=== PATIENT | female | born 1945 | race Caucasian/White ===

== ENCOUNTER 2018-08-26 07:18 | Emergency (ER) | payer OTHER ==
[~2018-08-26 07:18] MED LIST: ESOM40CA PO; INSULIN LISPRO; LITH300T4 PO; NPH,100V SQ; VENL225T3 PO; [UNRECOGNIZED DRUG - OTHER]
[2018-08-26 08:39] LABS: BASOPHILS % (AUTO) 0.5 % (0.0-5.0); EOSINOPHILS % (AUTO) 1.1 % (0.0-8.0); HEMATOCRIT 40.4 % (36-48); LYMPHOCYTES % (AUTO) 8.3 % (21.0-51.0); MEAN CORPUSCULAR HEMOGLOBIN 31.7 pg (27.0-33.0); MEAN CORPUSCULAR HGB CONC 33.7 g/dL (32.0-36.0); MEAN CORPUSCULAR VOLUME 94.1 fL (79-99); MONOCYTES % (AUTO) 7.8 % (3.0-13.0); NEUTROPHILS % (AUTO) 82.3 % (40.0-77.0); PLATELET COUNT (AUTO) 259 K/uL (130-400); RED BLOOD CELL COUNT(AUTO) 4.29 MIL/uL (4.00-5.50); RED CELL DISTRIBUTION WIDTH 13.4 % (11.0-15.5); WHITE BLOOD COUNT (AUTO) 9.6 K/uL (4.8-10.8)
[2018-08-26 08:45] LABS: CREATININE 0.7 mg/dL (0.5-1.5); POTASSIUM 3.7 mmol/L (3.5-5.1)
[2018-08-26 08:49] LABS: BILIRUBIN,TOTAL 0.5 mg/dL (0.2-1.0); TOTAL PROTEIN, SERUM 6.7 g/dL (6.0-8.3)
[2018-08-26 08:55] LABS: INR 0.9 (0.85-1.15); PARTIAL THROMBOPLASTIN TIME 25.1 SEC (26.3-35.5); PROTHROMBIN TIME 9.5 SEC (9.6-11.6)
[2018-08-26] MEDS ORDERED: CEFTRIAXONE SODIUM 1 GM ONE (09:02)
[2018-08-26] MEDS ORDERED: SODIUM CHLORIDE 0.9% 50 ML IV ONE (09:02)
[2018-08-26 09:25] LABS: APPEARANCE,URINE Clear (CLEAR); BILIRUBIN,URINE Small (NEGATIVE); COLOR,URINE Dark Yellow (YELLOW); GLUCOSE, URINE (UA) >=1000 mg/dL (NEGATIVE); KETONES,URINE 15 mg/dL (NEGATIVE); LEUKOCYTE ESTERASE ,URINE Small (NEGATIVE); NITRATE,URINE Negative (NEGATIVE); OCCULT BLOOD,URINE Nonhemolyzed Trace (NEGATIVE); PH,URINE 5.5 (5.0-8.0); PROTEIN,URINE Negative (NEGATIVE)
[2018-08-26 09:35] LABS: BACTERIA,URINE Rare /HPF (None Seen); MUCUS,URINE Few LPF (None Seen); RBC,URINE 0-1 /HPF (0-1); SQUAMOUS EPITHELIAL CELL,UR Rare /HPF (0-2)
== END 2018-08-26 09:44 | disposition home or self-care (01) ==
LOC: EDH 07:18
DX: K04.7 Periapical abscess without sinus (principal); I48.91 Unspecified atrial fibrillation; E11.9 Type 2 diabetes mellitus without complications; F32.9 Major depressive disorder, single episode, unspecified; K21.9 Gastro-esophageal reflux disease without esophagitis; Z79.4 Long term (current) use of insulin; Z91.040 Latex allergy status; Z88.8 Allergy status to other drugs, medicaments and biological substances
CPT/HCPCS: 36415; 71045; 80053; 81001; 84484; 85025; 85610; 85730; 93005; 96374; 99284; J0696

== ENCOUNTER 2019-06-28 07:46 | Emergency (ER) | payer OTHER ==
[2019-06-28] MEDS ORDERED: PROCHLORPERAZINE EDISYLATE 10 MG/2 ML VIAL ONE (08:31)
[2019-06-28] MEDS ORDERED: SODIUM CHLORIDE 0.9% 1000ML 1,000 ML IV ONE (08:31)
[2019-06-28 08:45] LABS: BASOPHILS % (AUTO) 0.7 % (0.0-5.0); EOSINOPHILS % (AUTO) 1.4 % (0.0-8.0); HEMATOCRIT 40.8 % (36-48); LYMPHOCYTES % (AUTO) 9.6 % (21.0-51.0); MEAN CORPUSCULAR HEMOGLOBIN 32.8 pg (27.0-33.0); MEAN CORPUSCULAR HGB CONC 33.9 g/dL (32.0-36.0); MEAN CORPUSCULAR VOLUME 96.8 fL (79-99); MONOCYTES % (AUTO) 7.6 % (3.0-13.0); NEUTROPHILS % (AUTO) 80.7 % (40.0-77.0); NUCLEATED RED BLOOD CELLS 0.1 % (0.0-0.19); PLATELET COUNT (AUTO) 280 K/uL (130-400); RED BLOOD CELL COUNT(AUTO) 4.21 MIL/uL (4.00-5.50); RED CELL DISTRIBUTION WIDTH 13.1 % (11.0-15.5); WHITE BLOOD COUNT (AUTO) 8.3 K/uL (4.8-10.8)
[2019-06-28 09:14] LABS: B-TYPE NATRIURETIC PEPTIDE 16 pg/mL (0-100)
[2019-06-28 09:16] LABS: INR 0.95 (0.85-1.15)
[2019-06-28 09:23] LABS: CREATININE 0.9 mg/dL (0.5-1.5)
[2019-06-28 09:24] LABS: BILIRUBIN,TOTAL 0.3 mg/dL (0.2-1.0); TOTAL PROTEIN, SERUM 6.5 g/dL (6.0-8.3)
[2019-06-28] MEDS ORDERED: HALOPERIDOL LACTATE 5 MG/ML VIAL ONE (09:35)
[2019-06-28 09:43] LABS: POTASSIUM 4.1 mmol/L (3.5-5.1)
[2019-06-28 09:51] LABS: APPEARANCE,URINE Clear (CLEAR); BILIRUBIN,URINE Negative (NEGATIVE); COLOR,URINE Yellow (YELLOW); GLUCOSE, URINE (UA) >=1000 mg/dL (NEGATIVE); KETONES,URINE Trace mg/dL (NEGATIVE); LEUKOCYTE ESTERASE ,URINE Negative (NEGATIVE); NITRATE,URINE Negative (NEGATIVE); OCCULT BLOOD,URINE Nonhemolyzed Trace (NEGATIVE); PROTEIN,URINE Negative (NEGATIVE); UROBILINOGEN,URINE 0.2 mg/dL (0.2-1.0)
[2019-06-28 09:58] LABS: BACTERIA,URINE Rare /HPF (None Seen); RBC,URINE 0-1 /HPF (0-1); SQUAMOUS EPITHELIAL CELL,UR Rare /HPF (0-2); WBC,URINE 0-1 /HPF (0-1)
[2019-06-28] MEDS ORDERED: INSULIN HUMULIN R 100 UNIT/ML 3ML ONE (10:22)
[2019-06-28] MEDS ORDERED: IOHEXOL-350 75 ML VIAL IV ONE (11:12)
== END 2019-06-28 13:48 | disposition home or self-care (01) ==
LOC: EDH 07:46
DX: R07.89 Other chest pain (principal); I48.91 Unspecified atrial fibrillation; F31.9 Bipolar disorder, unspecified; E11.9 Type 2 diabetes mellitus without complications; K21.9 Gastro-esophageal reflux disease without esophagitis; Z79.4 Long term (current) use of insulin; Z72.0 Tobacco use; Z88.8 Allergy status to other drugs, medicaments and biological substances; Z91.040 Latex allergy status
CPT/HCPCS: 36415; 71045; 71275; 80053; 81001; 82550; 82948 ×2; 83880; 84484 ×2; 85025; 85610; 85730; 93005 ×2; 96374; 96375; 99285; J0780; J1630; J1815; J7030; Q9967

== ENCOUNTER 2019-07-07 03:43 | Emergency (ER) | payer OTHER ==
[2019-07-07] MEDS ORDERED: DIAZEPAM 5 MG TABLET ONE (04:17)
[2019-07-07] MEDS ORDERED: ORPHENADRINE CITRATE 30 MG/ML ML ONE (04:17)
[2019-07-07 04:21] LABS: BASOPHILS % (AUTO) 0.4 % (0.0-5.0); EOSINOPHILS % (AUTO) 0.9 % (0.0-8.0); HEMATOCRIT 41.9 % (36-48); LYMPHOCYTES % (AUTO) 6.6 % (21.0-51.0); MEAN CORPUSCULAR HEMOGLOBIN 32.5 pg (27.0-33.0); MEAN CORPUSCULAR HGB CONC 33.8 g/dL (32.0-36.0); MEAN CORPUSCULAR VOLUME 96.2 fL (79-99); MONOCYTES % (AUTO) 7.6 % (3.0-13.0); NEUTROPHILS % (AUTO) 84.5 % (40.0-77.0); PLATELET COUNT (AUTO) 262 K/uL (130-400); RED BLOOD CELL COUNT(AUTO) 4.35 MIL/uL (4.00-5.50); RED CELL DISTRIBUTION WIDTH 13.2 % (11.0-15.5); WHITE BLOOD COUNT (AUTO) 9.5 K/uL (4.8-10.8)
[2019-07-07 04:46] LABS: ALBUMIN 3.3 g/dL (3.5-5.0); BILIRUBIN,TOTAL 0.5 mg/dL (0.2-1.0); CREATININE 0.7 mg/dL (0.5-1.5); POTASSIUM 4.3 mmol/L (3.5-5.1); TOTAL PROTEIN, SERUM 6.5 g/dL (6.0-8.3)
[2019-07-07] MEDS ORDERED: INSULIN HUMULIN R 100 UNIT/ML 3ML ONE (05:01)
[2019-07-07] MEDS ORDERED: HYDROCODONE/ACETAMINOPHEN 10/325 MG TAB ONE (06:05)
== END 2019-07-07 06:47 | disposition home or self-care (01) ==
LOC: EDH 03:43
DX: M25.511 Pain in right shoulder (principal); M54.2 Cervicalgia; I48.91 Unspecified atrial fibrillation; E11.9 Type 2 diabetes mellitus without complications; K21.9 Gastro-esophageal reflux disease without esophagitis; I10 Essential (primary) hypertension; F41.9 Anxiety disorder, unspecified; E78.00 Pure hypercholesterolemia, unspecified; F31.9 Bipolar disorder, unspecified; F10.20 Alcohol dependence, uncomplicated; Z91.040 Latex allergy status; Z88.8 Allergy status to other drugs, medicaments and biological substances
CPT/HCPCS: 36415; 71045; 80053; 82550; 82948; 84484; 85025; 93005; 96374; 96375; 99285; J1815; J2360

== ENCOUNTER 2019-07-10 04:40 | Emergency (ER) | payer OTHER ==
[2019-07-10 05:54] LABS: APPEARANCE,URINE Clear (CLEAR); BILIRUBIN,URINE Negative (NEGATIVE); COLOR,URINE Yellow (YELLOW); GLUCOSE, URINE (UA) >=1000 mg/dL (NEGATIVE); KETONES,URINE 15 mg/dL (NEGATIVE); LEUKOCYTE ESTERASE ,URINE Trace (NEGATIVE); NITRATE,URINE Negative (NEGATIVE); OCCULT BLOOD,URINE Negative (NEGATIVE); PH,URINE 6.5 (5.0-8.0); PROTEIN,URINE Negative (NEGATIVE)
[2019-07-10 06:08] LABS: BACTERIA,URINE None Seen /HPF (None Seen); RBC,URINE None Seen /HPF (0-1); SQUAMOUS EPITHELIAL CELL,UR Rare /HPF (0-2); WBC,URINE 0-1 /HPF (0-1); YEAST,URINE BUDDING None Seen /HPF (None Seen)
[2019-07-10 06:21] LABS: BASOPHILS % (AUTO) 0.5 % (0.0-5.0); EOSINOPHILS % (AUTO) 1.6 % (0.0-8.0); HEMATOCRIT 39.8 % (36-48); LYMPHOCYTES % (AUTO) 15.7 % (21.0-51.0); MEAN CORPUSCULAR HEMOGLOBIN 32.5 pg (27.0-33.0); MEAN CORPUSCULAR VOLUME 95.6 fL (79-99); MONOCYTES % (AUTO) 9.8 % (3.0-13.0); NEUTROPHILS % (AUTO) 72.4 % (40.0-77.0); PLATELET COUNT (AUTO) 270 K/uL (130-400); RED BLOOD CELL COUNT(AUTO) 4.16 MIL/uL (4.00-5.50); WHITE BLOOD COUNT (AUTO) 6.7 K/uL (4.8-10.8)
[2019-07-10 06:32] LABS: CARBON DIOXIDE 27 mmol/L (21-32); CHLORIDE 102 mmol/L (101-111); CREATININE 0.7 mg/dL (0.5-1.5); GLOMERULAR FILTR. RATE CALC 87 mL/min (>60); GLUCOSE,RANDOM 384 mg/dL (70-105); POTASSIUM 3.4 mmol/L (3.5-5.1); SODIUM SERUM 138 mmol/L (136-145); UREA NITROGEN, BLOOD 6 mg/dL (7-18)
[2019-07-10 06:42] LABS: ALANINE AMINOTRANSFERASE 17 U/L (12-78); ALBUMIN 3.2 g/dL (3.5-5.0); ASPARTATE AMINOTRANSFERASE 12 U/L (10-37); BILIRUBIN,TOTAL 0.5 mg/dL (0.2-1.0); TOTAL PROTEIN, SERUM 6.8 g/dL (6.0-8.3)
[2019-07-10 06:52] LABS: LIPASE < 50 U/L (114-286)
[2019-07-10] MEDS ORDERED: NAPROXEN 500 MG TABLET ONE (07:29)
== END 2019-07-10 10:36 | disposition home or self-care (01) ==
LOC: EDH 04:40
DX: M25.511 Pain in right shoulder (principal); R10.9 Unspecified abdominal pain; F41.9 Anxiety disorder, unspecified; I48.91 Unspecified atrial fibrillation; F31.9 Bipolar disorder, unspecified; E11.9 Type 2 diabetes mellitus without complications; K21.9 Gastro-esophageal reflux disease without esophagitis; E78.00 Pure hypercholesterolemia, unspecified; I10 Essential (primary) hypertension; Z79.4 Long term (current) use of insulin; Z91.040 Latex allergy status; Z88.8 Allergy status to other drugs, medicaments and biological substances
CPT/HCPCS: 36415; 73030; 74176; 80053; 81001; 83690; 84484; 85025; 93005

== ENCOUNTER 2020-01-18 10:04 | Emergency (ER) | payer OTHER ==
[2020-01-18 10:27] LABS: BASOPHILS % (AUTO) 0.5 % (0.0-5.0); EOSINOPHILS % (AUTO) 1.6 % (0.0-8.0); HEMATOCRIT 38.2 % (36-48); LYMPHOCYTES % (AUTO) 13.8 % (21.0-51.0); MEAN CORPUSCULAR HEMOGLOBIN 31.1 pg (27.0-33.0); MEAN CORPUSCULAR HGB CONC 33.5 g/dL (32.0-36.0); MEAN CORPUSCULAR VOLUME 92.9 fL (79-99); MONOCYTES % (AUTO) 7.4 % (3.0-13.0); NEUTROPHILS % (AUTO) 76.3 % (40.0-77.0); PLATELET COUNT (AUTO) 289 K/uL (130-400); RED BLOOD CELL COUNT(AUTO) 4.11 MIL/uL (4.00-5.50); RED CELL DISTRIBUTION WIDTH 13.2 % (11.0-15.5); WHITE BLOOD COUNT (AUTO) 8.3 K/uL (4.8-10.8)
[2020-01-18 10:38] LABS: CREATININE 0.7 mg/dL (0.5-1.5); POTASSIUM 3.1 mmol/L (3.5-5.1)
[2020-01-18 10:48] LABS: ALBUMIN 3.3 g/dL (3.5-5.0); BILIRUBIN,TOTAL 0.2 mg/dL (0.2-1.0); TOTAL PROTEIN, SERUM 6.7 g/dL (6.0-8.3)
[2020-01-18] MEDS ORDERED: POTASSIUM BICARB/CIT AC 25 MEQ TABLET.EFF ONE (10:49)
[2020-01-18] MEDS ORDERED: PROCHLORPERAZINE EDISYLATE 10 MG/2 ML VIAL ONE (10:49)
[2020-01-18] MEDS ORDERED: ONDANSETRON HCL 4 MG/2 ML VIAL ONE (10:49)
[2020-01-18] MEDS ORDERED: CEFTRIAXONE SODIUM 1 GM ONE (11:42)
== END 2020-01-18 14:44 | disposition home or self-care (01) ==
LOC: EDH 10:04
DX: K52.9 Noninfective gastroenteritis and colitis, unspecified (principal); F41.9 Anxiety disorder, unspecified; I48.91 Unspecified atrial fibrillation; F32.9 Major depressive disorder, single episode, unspecified; E78.00 Pure hypercholesterolemia, unspecified; I10 Essential (primary) hypertension; K21.9 Gastro-esophageal reflux disease without esophagitis; E11.9 Type 2 diabetes mellitus without complications; Z90.49 Acquired absence of other specified parts of digestive tract; Z90.710 Acquired absence of both cervix and uterus; Z72.0 Tobacco use; Z88.8 Allergy status to other drugs, medicaments and biological substances; Z91.040 Latex allergy status
CPT/HCPCS: 36415; 74176; 80053; 83690; 84484; 85025; 93005; 96361; 96374; 96375; 99285; J0696; J0780; J2405

== ENCOUNTER 2021-02-04 05:35 | Observation (INO) | payer OTHER ==
[~2021-02-04] VITALS: Ht 160 cm; Wt 96.6 kg
[2021-02-04] MEDS ORDERED: NITROGLYCERIN 1GM/1 INCH PACKET TD ONE (06:15)
[2021-02-04] MEDS ORDERED: ASPIRIN 325 MG TABLET ONE (06:15)
[2021-02-04 06:19] LABS: BASOPHILS % (AUTO) 0.3 % (0.0-5.0); EOSINOPHILS % (AUTO) 0.3 % (0.0-8.0); HEMATOCRIT 41.5 % (36-48); LYMPHOCYTES % (AUTO) 6.4 % (21.0-51.0); MEAN CORPUSCULAR HEMOGLOBIN 31.4 pg (27.0-33.0); MEAN CORPUSCULAR HGB CONC 32.8 g/dL (32.0-36.0); MEAN CORPUSCULAR VOLUME 95.8 fL (79-99); MONOCYTES % (AUTO) 4.5 % (3.0-13.0); NEUTROPHILS % (AUTO) 88.2 % (40.0-77.0); PLATELET COUNT (AUTO) 321 K/uL (130-400); RED BLOOD CELL COUNT(AUTO) 4.33 MIL/uL (4.00-5.50); RED CELL DISTRIBUTION WIDTH 12.7 % (11.0-15.5); WHITE BLOOD COUNT (AUTO) 12.6 K/uL (4.8-10.8)
[2021-02-04 06:36] LABS: INR 0.97 (0.85-1.15); PROTHROMBIN TIME 10.6 SEC (9.6-11.6)
[2021-02-04] MEDS ORDERED: CEFTRIAXONE SODIUM 1 GM ONE (06:36)
[2021-02-04 06:37] LABS: PARTIAL THROMBOPLASTIN TIME 24.3 SEC (26.3-35.5)
[2021-02-04] MEDS ORDERED: AZITHROMYCIN 250 MG TABLET PO ONE (06:37)
[2021-02-04 06:55] LABS: CARBON DIOXIDE 24 mmol/L (21-32); CHLORIDE 102 mmol/L (101-111); GLOMERULAR FILTR. RATE CALC 58 mL/min (>60); GLUCOSE,RANDOM 298 mg/dL (70-105); POTASSIUM 4.4 mmol/L (3.5-5.1); SODIUM SERUM 135 mmol/L (136-145); UREA NITROGEN, BLOOD 14 mg/dL (7-18)
[2021-02-04 07:05] LABS: ALANINE AMINOTRANSFERASE 22 U/L (12-78); ALBUMIN 3.6 g/dL (3.5-5.0); ALCOHOL, BLOOD < 3 mg/dL (0-10); ASPARTATE AMINOTRANSFERASE 19 U/L (10-37); BILIRUBIN,TOTAL 0.5 mg/dL (0.2-1.0); CREATINE KINASE, TOTAL 71 U/L (21-232); TOTAL PROTEIN, SERUM 6.7 g/dL (6.0-8.3)
[2021-02-04] MEDS ORDERED: ENOXAPARIN SODIUM 30 MG/0.3 ML SQ ONE (08:24)
[2021-02-04] MEDS ORDERED: DOXYCYCLINE HYCLATE 100 MG TABLET PO ONE (08:24)
[2021-02-04] MEDS ORDERED: INSULIN HUMULIN R 100 UNIT/ML 3ML ONE (08:25)
[2021-02-04] MEDS ORDERED: ACETAMINOPHEN 325 MG TAB PO PRN (09:30)
[2021-02-04] MEDS ORDERED: DEXTROSE 50%-WATER 50 ML DISP.SYRIN IV PRN (09:30)
[2021-02-04] MEDS ORDERED: GLUCAGON 1MG KIT 1 MG ML IM PRN (09:30)
[2021-02-04] MEDS ORDERED: MORPHINE SULFATE 2 MG/ML 1ML SYG IVP PRN (09:30)
[2021-02-04] MEDS ORDERED: ACETAMINOPHEN 325 MG TAB ONE (11:15)
[2021-02-04] MEDS: INSULIN R PO SS1 SQ SCH ×3 (11:30→21:50)
[2021-02-04 11:38] LABS: APPEARANCE,URINE CLEAR (CLEAR); BILIRUBIN,URINE NEGATIVE (NEGATIVE); COLOR,URINE YELLOW (YELLOW); GLUCOSE, URINE (UA) 250 mg/dL (NEGATIVE); KETONES,URINE 5 mg/dL (NEGATIVE); LEUKOCYTE ESTERASE ,URINE NEGATIVE (NEGATIVE); NITRATE,URINE NEGATIVE (NEGATIVE); OCCULT BLOOD,URINE NEGATIVE (NEGATIVE); PROTEIN,URINE NEGATIVE (NEGATIVE); UROBILINOGEN,URINE 0.2 mg/dL (0.2-1.0)
[2021-02-04 11:49] LABS: RBC,URINE 0-1 /HPF (0-1); WBC,URINE 0-1 /HPF (0-1)
[2021-02-04 11:50] LABS: BACTERIA,URINE Few /HPF (None Seen)
[2021-02-04 14:00] VITALS: BP 106/50
[2021-02-04] MEDS ORDERED: DULO60CA64 PO (14:33)
[2021-02-04] MEDS ORDERED: BENZ200C53 PO (14:33)
[2021-02-04] MEDS ORDERED: ALBUHFA IH (14:33)
[2021-02-04] MEDS ORDERED: HYDR-3421 PO (14:33)
[2021-02-04] MEDS ORDERED: ALBUTEROL SULFATE 0.083% 2.5 MG/3 ML INH IH PRN (14:45)
[2021-02-04] MEDS ORDERED: LACTULOSE 20 GM/30 ML UDCUP PO PRN (15:15)
[2021-02-04] MEDS ORDERED: ALBUTEROL INHALER 90MCG/INH IH PRN (16:15)
[2021-02-04 19:59] VITALS: BP 141/57
[2021-02-04] MEDS ORDERED: HYDROXYZINE HCL 25 MG TABLET PO SCH (21:00)
[2021-02-04] MEDS ORDERED: LITHIUM CARBONATE 150 MG CAPSULE PO SCH (21:00)
[2021-02-04] MEDS: DOXYCYCLINE 100MG+NS 250ML 250 ML IV SCH (21:58)
[2021-02-04] MEDS: BENZONATATE 100 MG CAPSULE PO SCH (21:58)
[2021-02-04] MEDS ORDERED: ALPRAZOLAM 1 MG TAB ONE (22:29)
[2021-02-04] MEDS ORDERED: ALPRAZOLAM 1 MG TAB PO SCH (22:30)
[2021-02-04 23:57] VITALS: BP 146/59
[2021-02-05 04:00] VITALS: BP 131/66
[2021-02-05 06:22] LABS: BASOPHILS % (AUTO) 0.6 % (0.0-5.0); EOSINOPHILS % (AUTO) 3.4 % (0.0-8.0); HEMATOCRIT 35.3 % (36-48); LYMPHOCYTES % (AUTO) 22.6 % (21.0-51.0); MEAN CORPUSCULAR HEMOGLOBIN 31.9 pg (27.0-33.0); MEAN CORPUSCULAR HGB CONC 32.9 g/dL (32.0-36.0); MONOCYTES % (AUTO) 9.6 % (3.0-13.0); NEUTROPHILS % (AUTO) 63.5 % (40.0-77.0); PLATELET COUNT (AUTO) 279 K/uL (130-400); RED BLOOD CELL COUNT(AUTO) 3.64 MIL/uL (4.00-5.50); RED CELL DISTRIBUTION WIDTH 12.8 % (11.0-15.5); WHITE BLOOD COUNT (AUTO) 6.6 K/uL (4.8-10.8)
[2021-02-05 06:30] LABS: HEMOGLOBIN A1C 7.7 % (4.0-6.0)
[2021-02-05 06:39] LABS: ALBUMIN 2.9 g/dL (3.5-5.0); BILIRUBIN,TOTAL 0.3 mg/dL (0.2-1.0); CREATININE 0.7 mg/dL (0.5-1.5); MAGNESIUM 1.8 mg/dL (1.80-2.40); TOTAL PROTEIN, SERUM 5.9 g/dL (6.0-8.3)
[2021-02-05] MEDS: INSULIN R PO SS1 SQ SCH ×2 (07:30→12:03)
[2021-02-05] MEDS ORDERED: PANTOPRAZOLE SODIUM 40 MG TABLET.DR PO SCH (09:00)
[2021-02-05] MEDS ORDERED: ENOXAPARIN SODIUM 30 MG/0.3 ML SQ SCH (09:00)
[2021-02-05] MEDS ORDERED: DULOXETINE HCL 30 MG CAP PO SCH (09:00)
[2021-02-05] MEDS ORDERED: CEFTRIAXONE SODIUM 1 GM IVP SCH (09:00)
[2021-02-05 09:41] VITALS: BP 134/65
[2021-02-05] MEDS: BENZONATATE 100 MG CAPSULE PO SCH (10:11)
[2021-02-05] MEDS ORDERED: SODIUM CHLORIDE 0.9% 250 ML IV SCH (10:30)
[2021-02-05] MEDS: DOXYCYCLINE 100MG+NS 250ML 250 ML IV SCH (10:53)
[2021-02-05 14:24] VITALS: BP 126/58
== END 2021-02-05 17:00 | disposition home or self-care (01) ==
LOC: EDH 05:35 → EDHIP 07:50 → 3AH 14:27 → 3BH 22:20
PROVIDERS: ADMIT Internal Medicine Infectious Disease; ATTEND Internal Medicine Infectious Disease
DX: A41.89 Other specified sepsis (principal); Z20.822 Contact with and (suspected) exposure to COVID-19; J40 Bronchitis, not specified as acute or chronic; J18.9 Pneumonia, unspecified organism; E11.65 Type 2 diabetes mellitus with hyperglycemia; F31.9 Bipolar disorder, unspecified; I10 Essential (primary) hypertension; E78.5 Hyperlipidemia, unspecified; K21.9 Gastro-esophageal reflux disease without esophagitis; F41.9 Anxiety disorder, unspecified; I48.91 Unspecified atrial fibrillation; E78.00 Pure hypercholesterolemia, unspecified; F17.200 Nicotine dependence, unspecified, uncomplicated; Z90.710 Acquired absence of both cervix and uterus; Z79.899 Other long term (current) drug therapy; Z91.040 Latex allergy status; Z88.8 Allergy status to other drugs, medicaments and biological substances
CPT/HCPCS: 36415 ×2; 71045; 74018; 80053 ×2; 81001; 82550; 82948 ×6; 83036; 83735; 84484; 85025 ×2; 85610; 85730; 87426; 93005; 96365; 96366 ×3; 96372; 96375; 99285; G0378 ×33; J0696 ×2; J1650 ×2; J1815 ×3; J3490 ×2; J7050; U0003